=== PATIENT | female | born 1975 | race Two or more races ===

== ENCOUNTER 2018-01-21 11:15 | Day surgery (SDC) | payer OTHER ==
[2018-01-21 11:56] VITALS: TEMP 98.7
[2018-01-21] MEDS ORDERED: IRON SUCROSE INJECTION 200 MG in SODIUM CHLORIDE 100 ML IVPB ONE (12:00)
[2018-01-21 12:53] VITALS: BP 130/74; PULSE 70
== END 2018-01-21 13:03 | disposition home or self-care (01) ==
LOC: FINFUSION 11:15 → FM/S 11:16 → FINFUSION 13:03
PROVIDERS: ATTEND Internal Medicine Hematology & Oncology
PROC: 3E033GC Introduction of Other Therapeutic Substance into Peripheral Vein, Percutaneous Approach (ICD-10-PCS; principal; 2018-01-21)
DX: D50.9 Iron deficiency anemia, unspecified (principal)
CPT/HCPCS: 96365; J1756

== ENCOUNTER 2018-01-28 11:08 | Day surgery (SDC) | payer OTHER ==
[2018-01-28] MEDS ORDERED: IRON SUCROSE INJECTION 200 MG in SODIUM CHLORIDE 100 ML IVPB ONE (11:30)
[2018-01-28 12:40] VITALS: BP 110/70; PULSE 78; TEMP 98.7
== END 2018-01-28 12:40 | disposition home or self-care (01) ==
LOC: FINFUSION 11:08 → FM/S 11:09 → FINFUSION 12:40
PROVIDERS: ATTEND Internal Medicine Hematology & Oncology
PROC: 3E033GC Introduction of Other Therapeutic Substance into Peripheral Vein, Percutaneous Approach (ICD-10-PCS; principal; 2018-01-28)
DX: D50.9 Iron deficiency anemia, unspecified (principal)
CPT/HCPCS: 96365; J1756

== ENCOUNTER 2018-02-04 10:42 | Day surgery (SDC) | payer OTHER ==
[2018-02-04] MEDS ORDERED: IRON SUCROSE INJECTION 200 MG in SODIUM CHLORIDE 100 ML IVPB ONE (11:00)
[2018-02-04 12:21] VITALS: BP 100/48; PULSE 62; TEMP 97.8
== END 2018-02-04 12:30 | disposition home or self-care (01) ==
LOC: FINFUSION 10:42 → FM/S 10:46 → FINFUSION 12:30
PROVIDERS: ATTEND Internal Medicine Hematology & Oncology
PROC: 3E033GC Introduction of Other Therapeutic Substance into Peripheral Vein, Percutaneous Approach (ICD-10-PCS; principal; 2018-02-04)
DX: D50.9 Iron deficiency anemia, unspecified (principal)
CPT/HCPCS: 96365; J1756

== ENCOUNTER 2018-02-11 12:05 | Day surgery (SDC) | payer OTHER ==
[2018-02-11] MEDS ORDERED: IRON SUCROSE INJECTION 200 MG in SODIUM CHLORIDE 100 ML IVPB ONE (13:15)
[2018-02-11 13:56] VITALS: BP 104/64; PULSE 72; TEMP 97.9
== END 2018-02-11 14:15 | disposition home or self-care (01) ==
LOC: FINFUSION 12:05 → FM/S 12:33 → FINFUSION 14:15
PROVIDERS: ATTEND Internal Medicine Hematology & Oncology
PROC: 3E033GC Introduction of Other Therapeutic Substance into Peripheral Vein, Percutaneous Approach (ICD-10-PCS; principal; 2018-02-11)
DX: D64.9 Anemia, unspecified (principal)
CPT/HCPCS: 96365; J1756

== ENCOUNTER 2018-02-17 14:44 | Day surgery (SDC) | payer OTHER ==
[2018-02-17] MEDS ORDERED: IRON SUCROSE INJECTION 200 MG in SODIUM CHLORIDE 100 ML IVPB ONE (15:00)
[2018-02-17] MEDS ORDERED: diphenhydrAMINE HCL 50 MG CAPSULE PO PRN (15:19)
[2018-02-17] MEDS ORDERED: HYDROCORTISONE SOD SUCCINATE 100 MG/2 ML VIAL IVPB PRN (15:20)
[2018-02-17 16:25] VITALS: BP 110/60; PULSE 81
== END 2018-02-17 16:30 | disposition home or self-care (01) ==
LOC: FINFUSION 14:44 → FM/S 14:46 → FINFUSION 16:30
PROVIDERS: ATTEND Internal Medicine Hematology & Oncology
PROC: 3E033GC Introduction of Other Therapeutic Substance into Peripheral Vein, Percutaneous Approach (ICD-10-PCS; principal; 2018-02-17)
DX: D64.9 Anemia, unspecified (principal)
CPT/HCPCS: 96365; J1756

== ENCOUNTER 2018-02-25 11:00 | Day surgery (SDC) | payer OTHER ==
[2018-02-25] MEDS ORDERED: IRON SUCROSE INJECTION 200 MG in SODIUM CHLORIDE 100 ML IVPB ONE (11:45)
[2018-02-25 12:30] VITALS: BP 102/61; PULSE 62; TEMP 98.3; BMI 32.3
== END 2018-02-25 12:40 | disposition home or self-care (01) ==
LOC: FINFUSION 11:00 → FM/S 11:03 → FINFUSION 12:40
PROVIDERS: ATTEND Internal Medicine Hematology & Oncology
PROC: 3E033GC Introduction of Other Therapeutic Substance into Peripheral Vein, Percutaneous Approach (ICD-10-PCS; principal; 2018-02-25)
DX: D64.9 Anemia, unspecified (principal)
CPT/HCPCS: 96365; J1756

== ENCOUNTER 2018-08-26 11:26 | Day surgery (SDC) | payer OTHER ==
[2018-08-26 11:46] VITALS: BP 114/63; PULSE 69; TEMP 98.2; BMI 33.7
[2018-08-26] MEDS ORDERED: IRON SUCROSE INJECTION 200 MG in SODIUM CHLORIDE 100 ML IVPB ONE (12:00)
== END 2018-08-26 13:13 | disposition home or self-care (01) ==
LOC: EDSEX 11:26 → FINFUSION 11:26 → MERGE 11:26 → FM/S 11:27 → FINFUSION 13:13
PROVIDERS: ATTEND Internal Medicine Hematology & Oncology
PROC: 3E033GC Introduction of Other Therapeutic Substance into Peripheral Vein, Percutaneous Approach (ICD-10-PCS; principal; 2018-08-26)
DX: D64.9 Anemia, unspecified (principal)
CPT/HCPCS: 96365; J1756

== ENCOUNTER 2018-09-02 11:27 | Day surgery (SDC) | payer OTHER ==
[2018-09-02] MEDS ORDERED: IRON SUCROSE INJECTION 200 MG in SODIUM CHLORIDE 100 ML IVPB ONE (12:15)
[2018-09-02 14:02] VITALS: TEMP 98.4
[2018-09-02 14:07] VITALS: BP 110/70; PULSE 74
== END 2018-09-02 13:30 | disposition home or self-care (01) ==
LOC: EDSEX → FINFUSION 11:27 → FM/S 11:28 → FINFUSION 13:30 → MERGE 16:30
PROVIDERS: ATTEND Internal Medicine Hematology & Oncology
PROC: 3E033GC Introduction of Other Therapeutic Substance into Peripheral Vein, Percutaneous Approach (ICD-10-PCS; principal; 2018-09-02)
DX: D64.9 Anemia, unspecified (principal)
CPT/HCPCS: 96365; J1756

== ENCOUNTER 2018-09-09 11:25 | Day surgery (SDC) | payer OTHER ==
[2018-09-09 11:37] VITALS: BP 101/64; PULSE 71; TEMP 98.7; BMI 33.1
[2018-09-09] MEDS ORDERED: IRON SUCROSE INJECTION 200 MG in SODIUM CHLORIDE 100 ML IVPB ONE (11:45)
== END 2018-09-09 11:35 | disposition home or self-care (01) ==
LOC: FINFUSION 11:25 → FM/S 11:28 → FINFUSION 11:35 → FM/S 11:35 → EDSTATUS 15:07
PROVIDERS: ATTEND Internal Medicine Hematology & Oncology
PROC: 3E033GC Introduction of Other Therapeutic Substance into Peripheral Vein, Percutaneous Approach (ICD-10-PCS; principal; 2018-09-09)
DX: D64.9 Anemia, unspecified (principal)
CPT/HCPCS: 96365; J1756

== ENCOUNTER 2018-09-16 12:04 | Day surgery (SDC) | payer OTHER ==
[2018-09-16] MEDS ORDERED: IRON SUCROSE INJECTION 200 MG in SODIUM CHLORIDE 100 ML IVPB ONE (12:15)
[2018-09-16 12:56] VITALS: TEMP 98.4
[2018-09-16 13:27] VITALS: BP 118/70; PULSE 70
== END 2018-09-16 13:15 | disposition home or self-care (01) ==
LOC: EDSEX → FINFUSION 12:04 → FM/S 12:06 → FINFUSION 13:15 → MERGE 16:37
PROVIDERS: ATTEND Internal Medicine Hematology & Oncology
PROC: 3E033GC Introduction of Other Therapeutic Substance into Peripheral Vein, Percutaneous Approach (ICD-10-PCS; principal; 2018-09-16)
DX: D64.9 Anemia, unspecified (principal)
CPT/HCPCS: 96365; J1756

== ENCOUNTER 2019-02-10 11:16 | Day surgery (SDC) | payer OTHER ==
[2019-02-10 11:43] VITALS: BMI 33.3
[2019-02-10] MEDS ORDERED: IRON SUCROSE INJECTION 200 MG in SODIUM CHLORIDE 100 ML IVPB ONE (11:45)
[2019-02-10 13:51] VITALS: BP 110/68; TEMP 98
[2019-02-10 13:54] VITALS: PULSE 72
== END 2019-02-10 13:50 | disposition home or self-care (01) ==
LOC: FINFUSION 11:16 → FM/S 11:18 → FINFUSION 13:50
PROVIDERS: ATTEND Internal Medicine Hematology & Oncology
PROC: 3E033GC Introduction of Other Therapeutic Substance into Peripheral Vein, Percutaneous Approach (ICD-10-PCS; principal; 2019-02-10)
DX: D50.9 Iron deficiency anemia, unspecified (principal)
CPT/HCPCS: 96365; J1756

== ENCOUNTER 2019-02-17 12:05 | Day surgery (SDC) | payer OTHER ==
[2019-02-17] MEDS ORDERED: IRON SUCROSE INJECTION 200 MG in SODIUM CHLORIDE 100 ML IVPB ONE (12:15)
[2019-02-17 13:05] VITALS: BP 122/76; PULSE 72; TEMP 98.4
== END 2019-02-17 13:05 | disposition home or self-care (01) ==
LOC: FINFUSION 12:05 → FM/S 12:06 → FINFUSION 13:05
PROVIDERS: ATTEND Internal Medicine
PROC: 3E033GC Introduction of Other Therapeutic Substance into Peripheral Vein, Percutaneous Approach (ICD-10-PCS; principal; 2019-02-17)
DX: D50.9 Iron deficiency anemia, unspecified (principal)
CPT/HCPCS: 96365; J1756

== ENCOUNTER 2019-02-24 11:46 | Day surgery (SDC) | payer OTHER ==
[2019-02-24] MEDS ORDERED: IRON SUCROSE INJECTION 200 MG in SODIUM CHLORIDE 100 ML IVPB ONE (12:15)
[2019-02-24 12:16] VITALS: BP 109/60; PULSE 73; TEMP 98.4; BMI 32.3
== END 2019-02-24 14:17 | disposition home or self-care (01) ==
LOC: FINFUSION 11:46 → FM/S 11:47 → FINFUSION 14:17
PROVIDERS: ATTEND Internal Medicine Hematology & Oncology
DX: D50.9 Iron deficiency anemia, unspecified (principal)
CPT/HCPCS: 96365; J1756

== ENCOUNTER 2019-03-03 11:40 | Day surgery (SDC) | payer OTHER | END 2019-03-03 13:56 | disposition home or self-care (01) | LOC: FINFUSION 11:40 → FM/S 11:41 → FINFUSION 13:56 | PROVIDERS: ATTEND Internal Medicine Hematology & Oncology | PROC: 3E033GC Introduction of Other Therapeutic Substance into Peripheral Vein, Percutaneous Approach (ICD-10-PCS; principal; 2019-03-03) | DX: D50.9 Iron deficiency anemia, unspecified (principal) | CPT/HCPCS: 96365 ==

== ENCOUNTER 2019-03-10 11:34 | Day surgery (SDC) | payer OTHER | END 2019-03-10 13:00 | disposition home or self-care (01) | LOC: FINFUSION 11:34 → FM/S 11:35 → FINFUSION 13:00 ==